=== PATIENT | male | born 1955 | race Caucasian/White ===

== ENCOUNTER → 2023-09-16 | Outpatient (CLI) | payer BC | LOC: M LAB 12:09 | PROVIDERS: ATTEND Internal Medicine | DX: E78.5 Hyperlipidemia, unspecified (principal) ==

== ENCOUNTER 2024-10-07 08:50 | Day surgery (SDC) | payer BC ==
[~2024-10-07] VITALS: Ht 172.7 cm; Wt 77.6 kg
[~2024-10-07 08:50] MED LIST: CHLO125TA PO; GALZ50CA PO; GLUC1CAP8 PO; K2 P1TAB PO; LIDOCAINE 2% 100MG/5ML SDV (FOR ANES.) As Ordered ONE; MAGN250T7 PO; OMEP-173 PO; RA T500C2 PO; ROSU5TAB49 PO; propofoL 200 MG/20 ML VIAL As Ordered ONE
[2024-10-07 10:14] VITALS: BP 141/90; O2SAT 94
== END 2024-10-07 10:16 | disposition home or self-care (01) ==
LOC: M OPP 08:50
PROVIDERS: ATTEND Surgery
DX: K63.5 Polyp of colon (principal); K57.30 Diverticulosis of large intestine without perforation or abscess without bleeding; K64.3 Fourth degree hemorrhoids; K62.5 Hemorrhage of anus and rectum; Z79.899 Other long term (current) drug therapy; I10 Essential (primary) hypertension; J44.9 Chronic obstructive pulmonary disease, unspecified; Z87.891 Personal history of nicotine dependence